=== PATIENT | female | born 1985 | race Caucasian/White ===

== ENCOUNTER 2020-06-23 03:46 | Emergency (ER) | payer SELFPAY ==
[2020-06-23] MEDS ORDERED: Lidocaine 2% w/Epinephrine 1:200K 20 ML VIAL ONE (04:28)
== END 2020-06-23 05:09 | disposition home or self-care (01) ==
LOC: MADERS 03:46
DX: L02.214 Cutaneous abscess of groin (principal); F17.210 Nicotine dependence, cigarettes, uncomplicated
CPT/HCPCS: 10060

== ENCOUNTER 2020-06-25 11:45 | Emergency (ER) | payer SELFPAY | END 2020-06-25 12:18 | disposition home or self-care (01) | LOC: MADERS 11:45 | DX: L02.214 Cutaneous abscess of groin (principal); F17.210 Nicotine dependence, cigarettes, uncomplicated | CPT/HCPCS: 99282 ==

== ENCOUNTER 2024-10-13 15:18 | Emergency (ER) | payer SELFPAY ==
[2024-10-13] MEDS ORDERED: Ondansetron PF 4 MG/2 ML Vial ONE (15:50)
== END 2024-10-13 16:07 | disposition home or self-care (01) ==
LOC: MADERS 15:18
DX: G89.4 Chronic pain syndrome (principal); R10.30 Lower abdominal pain, unspecified; F17.210 Nicotine dependence, cigarettes, uncomplicated
CPT/HCPCS: 96372; 99283; J2405; J2550; J3010

== ENCOUNTER 2025-01-24 16:19 | Emergency (ER) | payer SELFPAY ==
[~2025-01-24 16:19] MED LIST: Iopamidol 370 76% 100 ML VIAL ONE
[2025-01-24 17:11] LABS: ALT (SGPT) Less than 4 U/L (Less than 34); AST (SGOT) 11 U/L (11-34); Albumin 2.0 g/dL (3.1-4.5); Alkaline Phosphatase 144 U/L (40-110); Anion Gap 19 mmol/L (10-20); BUN (Urea Nitrogen) 39 mg/dL (7.0-18.7); Bilirubin, Total 0.8 mg/dL (0.3-1.2); Calc. Creatinine Clearance 0 mL/min (70-130); Calcium 8.3 mg/dL (7.8-10.44); Carbon Dioxide 13 mmol/L (22-29); Chloride 107 mmol/L (98-107); Globulin 4.4 g/dL (2.4-3.5); Glucose 131 mg/dL (70-105); Lipase 231 U/L (8-78); Magnesium 1.9 mg/dL (1.6-2.6); Potassium 3.9 mmol/L (3.5-5.1); Sodium 135 mmol/L (136-145); Troponin I 0.023 ng/mL (< 0.028)
[2025-01-24 17:17] LABS: Anisocytosis SLIGHT = 6-15 cells (100X) (0-5/hpf); Critical Call w/ Read Back NUR.BP2@1706; Hematocrit 16.2 % (36.0-47.0); Hemoglobin 5.1 g/dL (12.0-16.0); MDiff Complete? YES; Mean Corpuscular Hemoglobin 28.3 pg (27.0-31.0); Mean Corpuscular Volume 89.5 fl (78.0-98.0); Microcytosis SLIGHT = 6-15 cells (100X) (0-5/hpf); Platelet Adequacy Comment Appears Adequate; Platelet Count 229 10x3/uL (130-400); Red Blood Cell (RBC) Count 1.81 mill/uL (4.20-5.40); White Blood Cell (WBC) Count 2.9 10x3/uL (4.8-10.8)
[2025-01-24] MEDS ORDERED: Sodium Chloride 0.9% 250 ML 500 ML ONE (17:17)
[2025-01-24] MEDS ORDERED: Cefepime 2 GM VIAL ONE (17:17)
[2025-01-24] MEDS ORDERED: Ondansetron PF 4 MG/2 ML Vial ONE (17:18)
[2025-01-24] MEDS ORDERED: metroNIDAZOLE 500 MG (100 mL) BAG ONE (20:49)
[2025-01-24] MEDS ORDERED: HYDROmorphone 0.5 MG/0.5 ML SYRINGE ONE (20:49)
== END 2025-01-24 23:21 | disposition short-term general hospital (02) ==
LOC: MADERS 16:19
DX: A41.9 Sepsis, unspecified organism (principal); D64.9 Anemia, unspecified; F17.210 Nicotine dependence, cigarettes, uncomplicated
CPT/HCPCS: 36415; 36430; 71045; 71275; 74177; 80053; 83605; 83690; 83735; 84484; 85025; 86850; 86900; 86901; 87040; 93005; 94760; 96365; 96366; 96367; 96375; J0692; J1171; J3010; J3373; J7050; P9016; Q9967